=== PATIENT | female | born 1995 | race Caucasian/White ===

== ENCOUNTER 2020-03-08 12:26 | Emergency (ER) | payer SELFPAY ==
--- NOTE | 2020-03-08 12:23 | ECG_ITS ---
APPROVED REPORT Exam: Resting ECG HR:68 bpm ECG Measurements Heart Rate 68 AXES DC 134 P 63 QRSd 82 QRS 8 QT 396 T 33 QTc 421 <Conclusion> Normal sinus rhythm with sinus arrhythmia Incomplete RBBB Possible Left atrial enlargement Borderline ECG Electronically signed by : Lloyd Hebert, 03/09/2020 09:06:44
[2020-03-08 12:28] VITALS: BP 108/83; PULSE 80; PULSE 84; RESP 18; TEMP 36.7; O2SAT 98; BMI 31.0
--- NOTE | 2020-03-08 12:32 | XR_ITS ---
PROCEDURE: XR CHEST PORTABLE CLINICAL HISTORY: cough COMPARISON: CXR2V XR chest 2V from 06/18/2018 FINDINGS: The cardiomediastinal silhouette and pulmonary vascularity are within normal limits. The lungs are clear without infiltrates, suspicious nodules, or pleural effusions. No acute bony abnormalities. IMPRESSION: No acute findings. Dictated by: Imtiaz Skaggs MD 03/08/2020 13:41 Electronically signed by Imtiaz Skaggs MD in [place] 03/08/2020 13:41
[2020-03-08 12:55] VITALS: BP 124/81; PULSE 80; RESP 20; O2SAT 99
--- NOTE | 2020-03-08 13:22 | HMH.EDGENADL ---
ED Disposition Clinical Impression: Acute bronchiolitis Disposition: Home, Self-Care Condition on Discharge: Good Instructions: Acute Bronchitis Prescriptions: Azithromycin [Z-Farhad 250mg Tab] 250 mg PO DIRECTED #6 tab Transmission Status: Pending to [facility] #[id number] Referrals: Provider,Referral, [Primary Care Provider] - Time of Disposition: 13:27 - Critical Care Critical Care Time: No Attestation: On 03/08/20, the high probability of a clinically significant, sudden or life threatening deterioration of the following system(s) required my full and direct attention, intervention and personal management. The time I documented below is in addition to time spent performing reported procedures but includes the following listed in this critical care notation. Medical Decision Making - Medical Records Medical records reviewed: Yes: I reviewed the patient's medical records. - Richard Inquiry Pt receiving controlled substance: No Vital Signs: 03/08/20 12:28 03/08/20 12:55 Temperature 98.1 F Temperature Source Oral Pulse Rate [Brachial] 80 80 Respiratory Rate 18 20 Blood Pressure [Right Arm] 108/83 L 124/81 Blood Pressure Mean [Right Arm] 91 95 Blood Pressure Source [Right Arm] Automatic Cuff Automatic Cuff Blood Pressure Position [Right Arm] Supine Supine 02 Sat by Pulse Oximetry 98 99 Oxygen Delivery Method Room Air Room Air Orders (Tests/Meds): ED MEDICATIONS Discontinued Medications Generic Name Dose Route Start Last Admin Trade Name Freq PRN Reason Stop Dose Admin Al Hydrox/Mg Hydrox/Simethicone 30 ml 03/08/20 12:33 03/08/20 12:44 Maalox 30ml Udc PO 03/08/20 12:34 30 ml ONCE ONE Administration Lidocaine HCl 15 ml 03/08/20 12:33 03/08/20 12:44 Lidocaine 2% Viscous Solution 15ml Udc PO 03/08/20 12:34 15 ml ONCE ONE Administration ORDERS Category Date Time Status XR chest portable Stat Exams 03/08/20 12:32 Taken - Radiology Data #1 Image(s): Chest Image Reviewed: Yes I reviewed the patient's radiology results Preliminary Findings: Normal/NAD - ECG Data Tracing #1 EKG was reviewed at 1225. Normal ventricular rate is 60 bpm, normal OH and QTC. Final interpretation was normal sinus rhythm with nonspecific changes. - Reevaluation(s) Time: 13:26 Reevaluation #1: On reevaluation, patient is pain-free. No respiratory distress. Patient is to follow-up with PCP in 48 hours. Given strict return precautions. Patient verbalized understanding. Low risk for acute coronary syndrome based on heart score. PERC negative. Medical Decision Narrative: 24-year-old female presented to the emergency department with cough and chest discomfort. The patient only has discomfort when she coughs. I do believe her symptoms are consistent with bronchitis. EKG did not show any ST significance. Chest x-ray will be obtained. Patient hemodynamically stable. Afebrile. General Adult HPI - General Chief complaint: PAIN Stated complaint: cough Time Seen by Provider: 03/08/20 12:30 Mode of Arrival: Ambulatory Limitations: No Limitations Description of Symptoms (Recalled from ER Triage Doc. by RN): C/O epigastric CP after taking some antiacid medication, pt describes her pain as a burning sensation. Denies soa, fever, vomiting or exposure to covid19 - History of Present Illness HPI narrative: This is a 24-year-old female presented to the emergency department with cough and chest discomfort. Patient states that she had strep throat that she recovered from over the last week. However since then she has been having some nonproductive cough. States that it is dry in nature. She states that when she coughs she gets some chest tightness and discomfort. She took some Robitussin earlier today and it caused a lot of burning in her chest. She did feel slightly nauseous., However no vomiting. Patient denies any fevers or chills. No abdominal pa
[2020-03-08 13:35] VITALS: BP 122/80; PULSE 74; RESP 16; TEMP 36.9; O2SAT 98
== END 2020-03-08 13:36 | disposition home or self-care (01) ==
PROVIDERS: Emergency Provider Emergency Medicine
DX: J21.9 Acute bronchiolitis, unspecified (principal)
CPT/HCPCS: 71045; 93005; 99282; 99283

== ENCOUNTER 2021-02-27 13:28 | Emergency (ER) | payer SELFPAY ==
[2021-02-27 13:30] VITALS: BP 114/78; PULSE 68; RESP 16; TEMP 37; O2SAT 98; BMI 30.1
--- NOTE | 2021-02-27 14:22 | HMH.EDUTC ---
[facility] [place] Clinical Impression: Laceration Disposition: Home, Self-Care Condition on Discharge: Good Instructions: Laceration Repair, DI for Laceration Repair -- Simple Additional Instructions: Suture instructions: You have required stitches today. Please read the following instructions so you know how to care for them: 1. Keep wound area dry for the first 24 hours. 2 May clean gently with mild soap and water, after 48 hours to prevent crusting over suture knots. 3. You may shower if your provider gives permission but do not take a bath until the skin is healed.. 4. Never leave a wet dressing or Band-Aid on your stitches as this allows bacteria to reach the area and may cause infection. Band-aids can cause the wound to sweat and not recommended to wear for long periods of time Watch for signs of infection: Increasing redness, tenderness or warmth around the suture site Unusual swelling around the site Appearance of pus around each suture or any red streaks Fever If you develop any of the above signs or symptoms of infection, Follow up with Family Physician immediately 5. Suture removal in _7-10___days 6. Return to [facility] or follow up with family doctor for removal. This can be done by any medical provider during regular hours on Wednesday through Wednesday, by appointment. Referrals: Provider,Referral, MD [Primary Care Provider] - As needed Forms: Work/School Release Time of Disposition: 15:18 Medical Decision Making - Richard Inquiry Pt receiving controlled substance: No Richard was queried for this patient: No Vital Signs: 02/27/21 13:30 02/27/21 15:31 Temperature 98.6 F 98.6 F Temperature Source Oral Pulse Rate 68 Pulse Rate [Right Brachial] 68 Respiratory Rate 16 16 Blood Pressure 114/78 Blood Pressure [Right Arm] 114/78 Blood Pressure Mean [Right Arm] 90 Blood Pressure Source [Right Arm] Automatic Cuff Blood Pressure Position [Right Arm] Sitting 02 Sat by Pulse Oximetry 98 Oxygen Delivery Method Room Air Orders (Tests/Meds): ED MEDICATIONS Discontinued Medications Generic Name Dose Route Start Last Admin Trade Name Freq PRN Reason Stop Dose Admin Tetanus/Reduced Diphtheria/Acell Pertussis 0.5 ml 02/27/21 15:20 02/27/21 15:20 Tet/Diphth/Pert-Adult 0.5ml Syringe IM 02/27/21 15:21 0.5 ml .ONCE ONE Administration [facility] [place] - General Stated complaint: laceration rt hand Time Seen by Provider: 02/27/21 13:40 Mode of Arrival: Ambulatory Source of Information: Patient Limitations: No Limitations Description of Symptoms (Recalled from Triage Doc. by RN): PATIENT C/O LACERATION TO OUTSIDE OF RIGHT HAND. STATES SHE WAS WASHING DISHES AND A GLASS SHATTERED. UNSURE IF SHE IS UP TO DATE ON TDAP HEENT Symptoms (Recalled from RN notes): No Resp Symptoms (Recalled from RN notes): No Skin Symptoms (Recalled from RN notes): Yes MS Symptoms (Recalled from RN notes): No Functional Status (Recalled from RN notes): WNL - History of Present Illness Provider Complaint: Patient states that she was washing dishes and she stuck her hand into a cup and it broke States that large piece of glass cut her in her right hand just at the bottom of her little finger States that she immediately applied pressure and came in - Related Data Previous Rx's Medication Instructions Recorded Azithromycin [Z-Farhad 250mg Tab] 250 mg PO DIRECTED #6 tab 03/08/20 Allergies Allergy/AdvReac Type Severity Reaction Status Date / Time No Known Allergies Allergy Verified 10/27/18 21:45 - Worker's Comp Is this a Worker's Comp case?: No [facility] History - Hepatitis A Screen Drug use history?: No High risk sexual behaviors?: No History of sexually transmitted infection?: No Currently employed?: No Childcare worker?: No Do you have indoor plumbing?: Yes Do you have electricity?: Yes Attestation statement:: This patient has been screened for Hepatitis A risk factors. I have reviewed the p
[2021-02-27 15:31] VITALS: BP 114/78; PULSE 68; RESP 16; TEMP 37; O2SAT 98
== END 2021-02-27 15:38 | disposition home or self-care (01) ==
PROVIDERS: Emergency Provider Nurse Practitioner
DX: S61.411A Laceration without foreign body of right hand, initial encounter (principal); W25.XXXA Contact with sharp glass, initial encounter; Y92.010 Kitchen of single-family (private) house as the place of occurrence of the external cause
CPT/HCPCS: 12001; 90471; 90715; 99202; G0463

== ENCOUNTER 2021-03-11 16:20 | Emergency (ER) | payer SELFPAY ==
[2021-03-11 17:00] VITALS: BMI 27.4
[2021-03-11 17:03] VITALS: BP 122/74; PULSE 85; RESP 16; TEMP 36.6
== END 2021-03-11 17:04 | disposition home or self-care (01) ==
LOC: UTC 16:21
PROVIDERS: Emergency Provider Nurse Practitioner Family
DX: S61.411D Laceration without foreign body of right hand, subsequent encounter (principal)

== ENCOUNTER 2021-07-21 18:30 | Emergency (ER) | payer SELFPAY ==
[2021-07-21 20:57] VITALS: BP 0/0; PULSE 0; RESP 0; TEMP -17.7; TEMP 0
== END 2021-07-21 20:58 | disposition left against medical advice (07) ==
LOC: UTC 18:34
PROVIDERS: Emergency Provider Nurse Practitioner
DX: Z53.21 Procedure and treatment not carried out due to patient leaving prior to being seen by health care provider (principal)

== ENCOUNTER → 2021-08-30 12:41 | Outpatient (CLI) | payer SELFPAY | LOC: COVID.OUT 12:44 | PROVIDERS: Visit Provider Nurse Practitioner Family | DX: Z20.822 Contact with and (suspected) exposure to COVID-19 (principal) | CPT/HCPCS: C9803; U0003; U0005 ==

== ENCOUNTER 2022-01-12 10:40 | Emergency (ER) | payer SELFPAY ==
[2022-01-12 10:58] VITALS: BP 114/82; PULSE 61; RESP 19; TEMP 36.4; O2SAT 98; BMI 30.2
--- NOTE | 2022-01-12 11:14 | HMH.EDUTC ---
[facility] [place]ression: Right conjunctivitis Qualifiers: Conjunctivitis type: acute Acute conjunctivitis type: unspecified Qualified Code(s): H10.31 - Unspecified acute conjunctivitis, right eye Disposition: Home, Self-Care Condition on Discharge: Good Instructions: Conjunctivitis, DI for Conjunctivitis, How to Instill Eye Drops Additional Instructions: Use the eye drops as directed. Strict hand washing in the house hold, because conjunctivitis is very contagious. Follow up with your regular doctor. GO TO THE ER FOR ANY WORSENING SYMPTOMS OR CONCERNS Prescriptions: Sulfacetamide Sodium [Bleph-10] 1 drp OP Q3H 7 Days #1 ml Transmission Status: Pending to [facility] #[id number] Referrals: Provider,Referral, [Primary Care Provider] - Forms: Work/School Release Time of Disposition: 11:59 Medical Decision Making - Medical Records Medical records reviewed: No: I reviewed the patient's medical records. - Richard Inquiry Pt receiving controlled substance: No Vital Signs: 01/12/22 10:58 Temperature 97.6 F Temperature Source Oral Pulse Rate [Left Radial] 61 Respiratory Rate 19 Blood Pressure [Right Arm] 114/82 Blood Pressure Mean [Right Arm] 92 02 Sat by Pulse Oximetry 98 - Lab Data Lab results reviewed: Yes: I reviewed the patient's lab results. [facility] [place] - General Stated complaint: rt eye redness/pain Time Seen by Provider: 01/12/22 11:14 Mode of Arrival: Ambulatory Source of Information: Patient Limitations: No Limitations Description of Symptoms (Recalled from Triage Doc. by RN): pt here for pain and swelling of right eye. symptoms began yesterday morning HEENT Symptoms (Recalled from RN notes): Yes Resp Symptoms (Recalled from RN notes): No Skin Symptoms (Recalled from RN notes): No MS Symptoms (Recalled from RN notes): No Functional Status (Recalled from RN notes): wnl - History of Present Illness Provider Complaint: She states that for the past 2 days she has had worsening right eye irritation and matting. It was matted together this morning when she woke up. She denies any injury, foreign body, eye pain, or change in her vision in the eye. - Related Data Previous Rx's Medication Instructions Recorded Azithromycin [Z-Farhad 250mg Tab] 250 mg PO DIRECTED #6 tab 03/08/20 Sulfacetamide Sodium [Bleph-10] 1 drp OP Q3H 7 Days #1 ml 01/12/22 Allergies Allergy/AdvReac Type Severity Reaction Status Date / Time No Known Allergies Allergy Verified 01/12/22 11:00 - Worker's Comp Is this a Worker's Comp case?: No [facility] History - Hepatitis A Screen Attestation statement:: This patient has been screened for Hepatitis A risk factors. I have reviewed the patient's past medical history: Yes - Social History Smoking Status: Current some day smoker Tobacco Type: cigarettes Alcohol Intake: never Occupational Status: other ROS Obtained: Yes All systems reviewed & no additional complaints - Constitutional Constitutional: Denies chills, Denies fever(s) - Eyes Eyes: Reports as per HPI - ENT Ears, Nose, Mouth, and Throat: Denies dizziness, Denies otalgia, Denies sore throat - Cardiovascular Cardiovascular: Denies chest pain - Respiratory Respiratory: Denies chest congestion, Denies cough Physical Exam - General General appearance: alert, in no apparent distress - Head Head exam: atraumatic, normocephalic, normal inspection - Eye Eye exam: Present: PERRL, EOMI, conjunctival redness, conjunctival injection, discharge. Absent: nystagmus, miosis, mydriasis, periorbital swelling, periorbital tenderness - ENT ENT exam: Present: normal exam, normal oropharynx, mucous membranes moist, TM's normal bilaterally, normal external ear exam - Neck Neck exam: Present: normal inspection, full ROM, trachea midline. Absent: meningismus, lymphadenopathy - Chest Chest inspection: Present: normal inspection, symmetric chest wall rise. Absent:
[2022-01-12 11:59] VITALS: BP 114/82; PULSE 61; RESP 19; TEMP 36.4
== END 2022-01-12 12:02 | disposition home or self-care (01) ==
PROVIDERS: Emergency Provider Nurse Practitioner Family
DX: H10.31 Unspecified acute conjunctivitis, right eye (principal); F17.210 Nicotine dependence, cigarettes, uncomplicated
CPT/HCPCS: 99213; G0463

== ENCOUNTER 2022-02-11 14:08 | Emergency (ER) | payer SELFPAY ==
[2022-02-11 14:30] VITALS: BP 141/85; PULSE 91; RESP 19; TEMP 36.8; O2SAT 98; BMI 30.3
[2022-02-11 14:55] VITALS: BP 141/85; PULSE 91; RESP 19; TEMP 36.8; O2SAT 98
--- NOTE | 2022-02-11 14:56 | HMH.EDUTC ---
[facility] [place]: Exposure to COVID-19 virus Disposition: Home, Self-Care Condition on Discharge: Good Instructions: DI for COVID-19 (Suspected or Confirmed ), Preventing the Spread of Coronavirus Discharge Instructions Additional Instructions: *Monitor Temp, Over the counter Motrin or Tylenol as directed/as needed Tylenol every 4 hours and Motrin every 6 hours (as long as your family doctor has told you that you can take it) for fever or pain. and straight to ER if unable to lower temp less than 101.0 after medication given Follow up IMMEDIATELY for new or worsening symptoms or no Noticeable improvement over the next 48-72 hours. 911 for difficulty breathing or swallowing You were tested for today for COVID19 your test result should be back in the next 24-48 hours, you may check your results on the [facility] My Health Portal Make sure to take your Vitamins Vit. C Vit D and Zinc if you can take them Referrals: Provider,Referral, MD [Primary Care Provider] - As needed Forms: Work/School Release Medical Decision Making - Richard Inquiry Pt receiving controlled substance: No Richard was queried for this patient: No Vital Signs: 02/11/22 14:30 02/11/22 14:55 Temperature 98.2 F 98.2 F Temperature Source Oral Pulse Rate 91 H Pulse Rate [Right Brachial] 91 H Respiratory Rate 19 19 Blood Pressure 141/85 H Blood Pressure [Right Arm] 141/85 H Blood Pressure Mean [Right Arm] 103 Blood Pressure Source [Right Arm] Automatic Cuff Blood Pressure Position [Right Arm] Sitting 02 Sat by Pulse Oximetry 98 Oxygen Delivery Method Room Air Orders (Tests/Meds): ORDERS Category Date Time Status Covid-19 Nasal PCR ([facility]) Routine Lab 02/11/22 14:15 Received [facility] [place] - General Stated complaint: covid test Time Seen by Provider: 02/11/22 14:56 Mode of Arrival: Ambulatory Source of Information: Patient Limitations: No Limitations Description of Symptoms (Recalled from Triage Doc. by RN): COVID TEST D/T EXPOSURE, DENIES SYMPTOMS HEENT Symptoms (Recalled from RN notes): No Resp Symptoms (Recalled from RN notes): No Skin Symptoms (Recalled from RN notes): No MS Symptoms (Recalled from RN notes): No Functional Status (Recalled from RN notes): WNL - History of Present Illness Provider Complaint: Patient states that she was recently around someone that tested positive for COVID States that she is not having any symptoms but wanted to get tested due to exposure - Related Data Previous Rx's Medication Instructions Recorded Azithromycin [Z-Farhad 250mg Tab] 250 mg PO DIRECTED #6 tab 03/08/20 Sulfacetamide Sodium [Bleph-10] 1 drp OP Q3H 7 Days #1 ml 01/12/22 Allergies Allergy/AdvReac Type Severity Reaction Status Date / Time No Known Allergies Allergy Verified 01/12/22 11:00 - Worker's Comp Is this a Worker's Comp case?: No [facility] History - Hepatitis A Screen Attestation statement:: This patient has been screened for Hepatitis A risk factors. I have reviewed the patient's past medical history: Yes - Social History Smoking Status: Current some day smoker Tobacco Type: cigarettes Alcohol Intake: never Occupational Status: other ROS Obtained: Yes All systems reviewed & no additional complaints, Yes Systems reviewed as appropriate & no additional complaints - Constitutional Constitutional: Reports system reviewed and no additional complaints, except as docu, Denies body ache, Denies chills, Denies fever(s) - ENT Ears, Nose, Mouth, and Throat: Reports system reviewed and no additional complaints, except as docu, Denies otalgia, Denies sinus pain, Denies sinus pressure, Denies sore throat - Cardiovascular Cardiovascular: Reports system reviewed and no additional complaints, except as docu - Respiratory Respiratory: Reports system reviewed and no additional complaints, except as docu Physical Exam - General General appearance: alert, in no apparent distress
== END 2022-02-11 15:00 | disposition home or self-care (01) ==
PROVIDERS: Emergency Provider Nurse Practitioner
DX: Z20.822 Contact with and (suspected) exposure to COVID-19 (principal); F17.210 Nicotine dependence, cigarettes, uncomplicated
CPT/HCPCS: 99212; C9803; G0463; U0003; U0005